=== PATIENT | female | born 1995 | race Caucasian/White ===

== ENCOUNTER 2021-12-11 15:10 | Emergency (ER) | payer OTHER ==
[~2021-12-11] VITALS: Ht 175.3 cm; Wt 69.8 kg
[2021-12-11] MEDS ORDERED: NAPROSYN500 MG PO (16:05)
== END 2021-12-11 16:15 | disposition home or self-care (01) ==
LOC: ED 15:10
DX: S43.402A Unspecified sprain of left shoulder joint, initial encounter (principal); W00.0XXA Fall on same level due to ice and snow, initial encounter
CPT/HCPCS: 73030; 99283-25